=== PATIENT | female | born 1985 | race American Indian/Alaskan Native ===

== ENCOUNTER 2017-07-21 23:31 | Emergency (ER) | payer SELFPAY ==
[2017-07-21 23:46] VITALS: BP 150/81
[2017-07-21] MEDS ORDERED: NACL 0.9% 1000 ML 1,000 ML IV ONE (23:56)
[2017-07-21] MEDS ORDERED: PEPCID IV ONE (23:56)
[2017-07-21] MEDS ORDERED: BENADRYL IV ONE (23:56)
--- NOTE | 2017-07-21 23:56 | Emergency Department Report ---
HPI - General Chief Complaint: Allergic Reaction ED Past Medical Hx - Past Medical History Previous Medical History?: Yes Hx Hypertension: Yes Hx Diabetes: Yes - Surgical History Past Surgical History?: No - Social History Smoking Status: Current Every Day Smoker Substance Use Type: None ED Review of Systems ROS: Stated complaint: ALLERGIC REACTION Other details as noted in HPI Physical Exam - Physical Exam Vital Signs: Vital Signs 07/21/17 23:44 Temperature 98.2 F Pulse Rate 96 H Respiratory 18 Rate Blood Pressure 150/81 O2 Sat by Pulse 99 Oximetry ED Course Vital Signs 07/21/17 23:44 Temperature 98.2 F Pulse Rate 96 H Respiratory 18 Rate Blood Pressure 150/81 O2 Sat by Pulse 99 Oximetry Critical care attestation.: If time is entered above; I have spent that time in minutes in the direct care of this critically ill patient, excluding procedure time. ED Disposition Condition: Stable
--- NOTE | 2017-07-22 01:01 | Emergency Department Report ---
ED Allergic Reaction HPI - General Chief complaint: Allergic Reaction Stated complaint: ALLERGIC REACTION Time Seen by Provider: 07/21/17 23:56 Source: patient Mode of arrival: Ambulatory Limitations: No Limitations - History of Present Illness Initial Comments: This is a 31-year-old female nontoxic, well nourished in appearance, no acute signs of distress presents to the ED complaining of loss and hives 3 hours. Patient stated last night she was putting lotion/oil and developed itching sensation but denies having rash. Patient stated today she woke up with a rash but denies having hives. About 3 hours prior to arrival patient developed hives and whelps to the chest, back neck and extremities. Patient denies facial swelling or difficulty breathing. Patient denies any chest pain, shortness of breath, drooling, hoarseness, numbness, detailing, abdominal pain, nausea or vomiting. Patient denies any allergies. Past medical history includes hypertension diabetes. MD Complaint: allergic reaction, hives -: Gradual, days(s) (1) Exposure: other (lotion/oil) Symptoms: rash, itching. denies: facial swelling, lip swelling, difficulty swallowing, difficulty breathing, hoarseness, syncopy, dizziness, nausea, vomiting, abdominal pain Severity: mild Treatment Prior to Arrival: none Previous Allergy History: none - Related Data Previous Rx's Medication Instructions Recorded Last Taken Type diphenhydrAMINE [Benadryl CAP] 25 mg PO Q6HR PRN #20 capsule 07/22/17 Unknown Rx predniSONE [Deltasone] 40 mg PO QDAY #5 tab 07/22/17 Unknown Rx Allergies Allergy/AdvReac Type Severity Reaction Status Date / Time No Known Allergies Allergy Unverified 07/21/17 23:46 ED Review of Systems ROS: Stated complaint: ALLERGIC REACTION Other details as noted in HPI Constitutional: denies: chills, fever Eyes: denies: eye pain, eye discharge, vision change ENT: denies: ear pain, throat pain Respiratory: denies: cough, shortness of breath, wheezing Cardiovascular: denies: chest pain, palpitations Endocrine: no symptoms reported Gastrointestinal: denies: abdominal pain, nausea, diarrhea Genitourinary: denies: urgency, dysuria, discharge Musculoskeletal: denies: back pain, joint swelling, arthralgia Skin: rash, pruritus. denies: lesions Neurological: denies: headache, weakness, paresthesias Psychiatric: denies: anxiety, depression Hematological/Lymphatic: denies: easy bleeding, easy bruising ED Past Medical Hx - Past Medical History Previous Medical History?: Yes Hx Hypertension: Yes Hx Diabetes: Yes - Surgical History Past Surgical History?: No - Social History Smoking Status: Current Every Day Smoker Substance Use Type: None - Medications Home Medications: Home Medications Medication Instructions Recorded Confirmed Last Taken Type diphenhydrAMINE [Benadryl CAP] 25 mg PO Q6HR PRN #20 capsule 07/22/17 Unknown Rx predniSONE [Deltasone] 40 mg PO QDAY #5 tab 07/22/17 Unknown Rx ED Physical Exam - General Limitations: No Limitations General appearance: alert, in no apparent distress - Head Head exam: Present: atraumatic, normocephalic - Eye Eye exam: Present: normal appearance, PERRL, EOMI. Absent: scleral icterus, conjunctival injection, nystagmus, periorbital swelling, periorbital tenderness Pupils: Present: normal accommodation - ENT ENT exam: Present: normal exam, normal orophraynx, mucous membranes moist, TM's normal bilaterally, normal external ear exam - Neck Neck exam: Present: normal inspection, full ROM. Absent: tenderness, meningismus, lymphadenopathy, thyromegaly - Respiratory Respiratory exam: Present: normal lung sounds bilaterally. Absent: respiratory distress, wheezes, rales, rhonchi, stridor, chest wall tenderness, accessory muscle use, decreased breath sounds, prolonged expiratory - Cardiovascular Cardiovascular Exam: Present: regular rate, normal rhythm, normal heart sounds. Absent: systolic murmur, diastolic murmur, rubs, gallop - GI/Abdominal GI/Abdominal exam: Present: soft, normal bowel sounds. Absent: distended, tenderness, guarding, rebound, rigid, diminished bowel sounds - Rectal Rectal exam: Present: deferred - Extremities Exam Extremities exam: Present: normal inspection, full ROM, normal capillary refill. Absent: tenderness, pedal edema, joint swelling, calf tenderness - Back Exam Back exam: Present: normal inspection, full ROM. Absent: tenderness, CVA tenderness (R), CVA tenderness (L), muscle spasm, paraspinal tenderness, vertebral tenderness, rash noted - Neurological Exam Neurological exam: Present: alert, oriented X3, CN II-XII intact, normal gait, reflexes normal - Psychiatric Psychiatric exam: Present: normal affect, normal mood - Skin Skin exam: Present: warm, dry, intact, normal color. Absent: rash - Other Other exam information: Facial swelling or tongue swelling. No drooling. No angioedema. ED Course Vital Signs 07/21/17 23:44 Temperature 98.2 F Pulse Rate 96 H Respiratory 18 Rate Blood Pressure 150/81 O2 Sat by Pulse 99 Oximetry - Reevaluation(s) Reevaluation #1: 07/22/17 01:01 Patient is speaking in full sentences with no signs of distress. ED Medical Decision Making - Medical Decision Making This is a 31-year-old female that presents with allergic reaction. Patient is stable. There is no signs of any angioedema present. Patient received Solu- Medrol, Benadryl, Pepcid, and normal saline in the ED. Posterior patient's stated rash and itching has subsided. Patient denies any itching. Patient's is currently at the beside and states she will drive the patient home after discharge due to drowsiness of Benadryl. Patient received prednisone and Benadryl at discharge. Patient was instructed to follow-up with a primary care doctor in 3-5 days or if symptoms worsen and continue return to emergency room as soon as possible possible. At time time of discharge, the patient does not seem toxic or ill in appearance. No acute signs of distress noted. Patient agrees to discharge treatment plan of care. No further questions noted by the patient. Critical care attestation.: If time is entered above; I have spent that time in minutes in the direct care of this critically ill patient, excluding procedure time. ED Disposition Clinical Impression: Allergic reaction Qualifiers: Encounter type: initial encounter Qualified Code(s): T78.40XA - Allergy, unspecified, initial encounter Disposition: -01 TO HOME OR SELFCARE Is pt being admited?: No Does the pt Need Aspirin: No Condition: Stable Instructions: Urticaria (ED), Allergies (ED), Prednisone (By mouth), Diphenhydramine (By mouth) Additional Instructions: Follow-up with a primary care doctor in 3-5 days or if symptoms worsen and continue return to emergency room as soon as possible possible. Do not operate any machinery after discharged due to sedation/drowsiness of Benadryl but received in the emergency room. Prescriptions: diphenhydrAMINE [Benadryl CAP] 25 mg PO Q6HR PRN #20 capsule PRN Reason: Itching predniSONE [Deltasone] 40 mg PO QDAY #5 tab Referrals: PRIMARY CARE, [Primary Care Provider] - 3-5 Days MARITZA JACKSON MD [Staff Physician] - 3-5 Days [facility] [Outside] - 3-5 Days [facility] [Outside] - 3-5 Days Forms: Work/School Release Form(ED)
== END 2017-07-22 02:35 | disposition home or self-care (01) ==
LOC: ED 23:31
DX: T78.40XA Allergy, unspecified, initial encounter (principal); X58.XXXA Exposure to other specified factors, initial encounter; I10 Essential (primary) hypertension; E11.9 Type 2 diabetes mellitus without complications; F17.200 Nicotine dependence, unspecified, uncomplicated
CPT/HCPCS: 96361; 96374; 96375; 99282; J1200; J2930; J7030

== ENCOUNTER 2018-04-07 17:50 | Emergency (ER) | payer SELFPAY ==
[2018-04-07 17:57] VITALS: BP 168/104
[2018-04-07 19:32] LABS: Bilirubin,Urine NEG (Negative); Blood,Urine MOD (Negative); Color,Urine Yellow (Yellow); Mucus,Urine FEW /HPF; Protein,Urine <15 mg/dL mg/dL (Negative); Urobilinogen,Urine < 2.0 mg/dL (<2.0)
[2018-04-07 19:33] LABS: HCG Qualitative,Urine Negative (Negative)
--- NOTE | 2018-04-08 03:10 | Emergency Department Report ---
ED Female HPI - General Chief complaint: Urogenital-Female Stated complaint: ABDOMINAL PAIN Time Seen by Provider: 04/08/18 02:37 Source: patient Mode of arrival: Ambulatory Limitations: No Limitations - History of Present Illness Initial comments: 82-year-old female comes in for vaginal pain with this chart since last PM. Patient states she feels pressure with urination. Patient reports that the pain is sharp pains that feels crampy. Patient does report having a history of bacterial vaginosis. She is currently on no control. She sexually active with men T partner's unprotected last 6 months. She she reports this has happened vaginal discharge not sure if he has an odor. Has had a history of STDs as a teenager. Last menstrual. With 02/28/2018. Patient admits that she was prediabetic and was on metformin and has not been taking it for a while since she is running out of her medication. She is followed by Dr. Melgoza at [facility]. MD Complaint: vaginal discharge, pelvic pain -: days(s) (2) Severity scale (0 -10): 8 Quality: cramping, sharp Consistency: constant Improves with: none Worsens with: urination Are you Now?: No Last Menstrual Period: 02/28/18 EDC: 12/05/18 Associated Symptoms: vaginal discharge - Related Data Sexually active: Yes (men 2 partners unprotected) : 0 Previous Rx's Medication Instructions Recorded Last Taken Type diphenhydrAMINE [Benadryl CAP] 25 mg PO Q6HR PRN #20 capsule 07/22/17 Unknown Rx predniSONE [Deltasone] 40 mg PO QDAY #5 tab 07/22/17 Unknown Rx Fluconazole [Diflucan] 200 mg PO QDAY 2 Days #2 tablet 04/08/18 Unknown Rx Metformin HCl 500 mg PO BID #60 tablet 04/08/18 Unknown Rx Nitrofurantoin Monohyd/M-Cryst 100 mg PO BID #20 capsule 04/08/18 Unknown Rx [Macrobid 100 mg Capsule] metroNIDAZOLE 0.75%(NF) [Metrogel 1 applicatio TP BID #5 tube 04/08/18 Unknown Rx 0.75% TOPICAL] Allergies Allergy/AdvReac Type Severity Reaction Status Date / Time No Known Allergies Allergy Verified 04/07/18 17:55 ED Review of Systems ROS: Stated complaint: ABDOMINAL PAIN Other details as noted in HPI Cardiovascular: denies: chest pain, palpitations Endocrine: no symptoms reported Gastrointestinal: abdominal pain Genitourinary: urgency, dysuria, discharge Musculoskeletal: denies: back pain, joint swelling, arthralgia Skin: denies: rash, lesions ED Past Medical Hx - Past Medical History Hx Hypertension: Yes Hx Diabetes: Yes - Surgical History Past Surgical History?: No - Social History Smoking Status: Current Every Day Smoker Substance Use Type: None - Medications Home Medications: Home Medications Medication Instructions Recorded Confirmed Last Taken Type diphenhydrAMINE [Benadryl CAP] 25 mg PO Q6HR PRN #20 capsule 07/22/17 Unknown Rx predniSONE [Deltasone] 40 mg PO QDAY #5 tab 07/22/17 Unknown Rx Fluconazole [Diflucan] 200 mg PO QDAY 2 Days #2 tablet 04/08/18 Unknown Rx Metformin HCl 500 mg PO BID #60 tablet 04/08/18 Unknown Rx Nitrofurantoin Monohyd/M-Cryst 100 mg PO BID #20 capsule 04/08/18 Unknown Rx [Macrobid 100 mg Capsule] metroNIDAZOLE 0.75%(NF) [Metrogel 1 applicatio TP BID #5 tube 04/08/18 Unknown Rx 0.75% TOPICAL] ED Physical Exam - General Limitations: No Limitations - Head Head exam: Present: atraumatic, normocephalic - Eye Eye exam: Present: normal appearance - ENT ENT exam: Present: mucous membranes moist - Neck Neck exam: Present: normal inspection - Respiratory Respiratory exam: Present: normal lung sounds bilaterally. Absent: respiratory distress - Cardiovascular Cardiovascular Exam: Present: regular rate, normal rhythm. Absent: systolic murmur, diastolic murmur, rubs, gallop - GI/Abdominal GI/Abdominal exam: Present: soft, normal bowel sounds. Absent: tenderness - Neurological Exam Neurological exam: Present: alert, oriented X3 - Psychiatric Psychiatric exam: Present: normal affect, normal mood - Skin Skin exam: Present: warm, dry, intact, normal color. Absent: rash ED Course Vital Signs 04/07/18 17:55 Temperature 98.7 F Pulse Rate 102 H Respiratory 18 Rate Blood Pressure 168/104 O2 Sat by Pulse 98 Oximetry ED Medical Decision Making - Medical Decision Making Patient's been seen by this provider fast track. Urinalysis shows patient has a UTI. Urinalysis also shows the patient has greater than 500 of glucose in her urine. Point of care blood sugar ordered sugar came back 283. Discussed the patient I will treat her for a bacterial infection since a wet prep came back with greater than 20% clue cells. Discussed the patient I'll place her back on metformin 500 mg by mouth twice a day for diabetes. We'll place patient on metronidazole 75% gel via vaginal 5 days. We'll give patient a prescription for Diflucan for possible Yeast infection after taking the metronidazole. Discussed with patient that she needs to follow-up with her primary care provider Dr. Melgoza at [facility]. Patient verbalizes understanding. Critical care attestation.: If time is entered above; I have spent that time in minutes in the direct care of this critically ill patient, excluding procedure time. ED Disposition Clinical Impression: Bacterial vaginosis, Glucose found in urine on examination Diabetes mellitus Qualifiers: Diabetes mellitus type: type 2 Diabetes mellitus manager intermediate insulin use: without [facility] use Diabetes mellitus complication status: with unspecified complications Qualified Code(s): E11.8 - Type 2 diabetes mellitus with unspecified complications UTI (urinary tract infection) Qualifiers: Urinary tract infection type: site unspecified Hematuria presence: without hematuria Qualified Code(s): N39.0 - Urinary tract infection, site not specified Disposition: DC-01 TO HOME OR SELFCARE Is pt being admited?: No Does the pt Need Aspirin: No Condition: Stable Instructions: Bacterial Vaginosis (ED), Diabetes Mellitus Type 2 in Adults (ED) Additional Instructions: Please take medications as prescribed. It is important for you to follow up with Dr. Melgoza a primary care provider in regards to your elevated blood sugars that I failure, now with diabetes. I have give you a prescription for yeast infection take after he completed sure antibiotics for her bacterial infection. Prescriptions: Fluconazole [Diflucan] 200 mg PO QDAY 2 Days #2 tablet Metformin HCl 500 mg PO BID #60 tablet metroNIDAZOLE 0.75%(NF) [Metrogel 0.75% TOPICAL] 1 applicatio TP BID #5 tube Nitrofurantoin Monohyd/M-Cryst [Macrobid 100 mg Capsule] 100 mg PO BID #20 capsule Referrals: PRIMARY CARE,MD [Primary Care Provider] - 3-5 Days Forms: STI Treatment and Prevention, Work/School Release Form(ED)
== END 2018-04-08 05:08 | disposition home or self-care (01) ==
LOC: ED 17:50
DX: N76.0 Acute vaginitis (principal); N39.0 Urinary tract infection, site not specified; E11.9 Type 2 diabetes mellitus without complications; I10 Essential (primary) hypertension; F17.200 Nicotine dependence, unspecified, uncomplicated; Z79.84 Long term (current) use of oral hypoglycemic drugs
CPT/HCPCS: 81001; 81025; 82962; 87210; 87591